=== PATIENT | female | born 2000 | race Hispanic/Latino ===

== ENCOUNTER 2019-02-20 20:04 | Inpatient (IN) | payer SELFPAY ==
[~2019-02-20] VITALS: Ht 162.6 cm; Wt 102.3 kg
[2019-02-20] MEDS ORDERED: SODIUM CHLORIDE 0.9% 1000ML 1,000 ML IV ONE (20:24)
[2019-02-20] MEDS ORDERED: SODIUM CHLORIDE 0.9% 1000ML 2,000 ML IV ONE (20:36)
[2019-02-20 20:46] LABS: ABG OXYGEN SATURATION 40.5 % (95.0-99.0); BASE EXCESS,VENOUS BLOOD GAS -19.1 (-2.0-3.0); HCO3,VENOUS BLOOD GAS 6.1 (21.0-28.0); PCO2,VENOUS BLOOD GAS 16 (32-45); PH,VENOUS BLOOD GAS 7.212 (7.350-7.450)
[2019-02-20 20:57] LABS: BASOPHILS % (AUTO) 0.8 % (0.0-5.0); EOSINOPHILS % (AUTO) 0.1 % (0.0-8.0); HEMATOCRIT 49.4 % (36-48); LYMPHOCYTES % (AUTO) 10.6 % (21.0-51.0); MEAN CORPUSCULAR HEMOGLOBIN 27.1 pg (27.0-33.0); MEAN CORPUSCULAR HGB CONC 34.6 g/dL (32.0-36.0); MEAN CORPUSCULAR VOLUME 78.4 fL (80-100); MONOCYTES % (AUTO) 9.2 % (3.0-13.0); NEUTROPHILS % (AUTO) 75.6 % (40.0-77.0); PLATELET COUNT (AUTO) 262 K/uL (130-400); RED CELL DISTRIBUTION WIDTH 13.2 % (11.0-15.5); WHITE BLOOD COUNT (AUTO) 15.8 K/uL (4.8-10.8)
[2019-02-20] MEDS ORDERED: INSULIN HUMULIN R 100 UNIT/ML 3ML ONE ×2 (21:05→21:09)
[2019-02-20 21:08] LABS: INR 0.97 (0.85-1.15); PROTHROMBIN TIME 10.2 SEC (9.6-11.6)
[2019-02-20] MEDS ORDERED: SODIUM CHLORIDE 0.9% 100 ML IV ONE (21:09)
[2019-02-20 21:13] LABS: APPEARANCE,URINE CLOUDY (CLEAR); BILIRUBIN,URINE MODERATE (NEGATIVE); COLOR,URINE YELLOW (YELLOW); GLUCOSE, URINE (UA) 500 mg/dL (NEGATIVE); KETONES,URINE >=80 mg/dL (NEGATIVE); LEUKOCYTE ESTERASE ,URINE NEGATIVE (NEGATIVE); NITRATE,URINE NEGATIVE (NEGATIVE); OCCULT BLOOD,URINE SMALL (NEGATIVE); PROTEIN,URINE 30 mg/dL (NEGATIVE); UROBILINOGEN,URINE 0.2 mg/dL (0.2-1.0)
[2019-02-20 21:22] LABS: HCG,QUAL RESULT NEGATIVE (NEGATIVE)
[2019-02-20 21:23] LABS: AMPHET/METH SCREEN,URINE NEGATIVE (NEGATIVE); BARBITURATE SCREEN, URINE NEGATIVE (NEGATIVE); BENZODIAZEPINES SCREEN,URINE NEGATIVE (NEGATIVE); CANNABINOID SCREEN,URINE NEGATIVE (NEGATIVE); COCAINE SCREEN,URINE NEGATIVE (NEGATIVE); OPIATE SCREEN,URINE NEGATIVE (NEGATIVE); PHENCYCLIDINE SCREEN,URINE NEGATIVE (NEGATIVE)
[2019-02-20 21:36] LABS: ALBUMIN 4.1 g/dL (3.5-5.0); BILIRUBIN,TOTAL 0.6 mg/dL (0.2-1.0); TOTAL PROTEIN, SERUM 8.2 g/dL (6.0-8.3)
[2019-02-20 21:43] LABS: POTASSIUM 2.6 mmol/L (3.5-5.1)
[2019-02-20] MEDS ORDERED: POTASSIUM CHLORIDE 10% ELIXIR 20 MEQ/15 ML UDCUP ONE (21:47)
[2019-02-20] MEDS ORDERED: POTASSIUM BICARB/CIT AC 25 MEQ TABLET.EFF ONE (21:53)
[2019-02-20 22:00] LABS: BACTERIA,URINE Few /HPF (None Seen); YEAST,URINE BUDDING Few /HPF (None Seen)
[2019-02-20 22:01] LABS: HYALINE CASTS, URINE 0-1 /LPF (0-1 /LPF); OTHER CASTS, URINE WBC CASTS 1+ /LPF (None Seen); SQUAMOUS EPITHELIAL CELL,UR Few /HPF (0-2)
[2019-02-20] MEDS: SODIUM CHLORIDE 0.9% 1000ML 1,000 ML IV SCH (22:02)
[2019-02-20] MEDS ORDERED: DEXTROSE 5 %-0.45 % NACL 1,000 ML IV PRN (22:02)
[2019-02-20] MEDS ORDERED: NITROGLYCERIN 0.4 MG SL TAB SL PRN (22:15)
[2019-02-20] MEDS ORDERED: POTASSIUM CHLORIDE 10MEQ/100ML 100 ML IV PRN (22:15)
[2019-02-20] MEDS ORDERED: ONDANSETRON HCL 4 MG/2 ML VIAL IV PRN (22:15)
[2019-02-20] MEDS ORDERED: DiphenhydrAMINE HCL 50 MG/ML VIAL IV PRN (22:15)
[2019-02-20] MEDS ORDERED: INSULIN REGULAR, HUMAN 3ML 100 UNIT in SODIUM CHLORIDE 0.9% 99 ML IV SCH ×2 (22:45)
[2019-02-20] MEDS ORDERED: GLUCAGON 1MG KIT 1 MG ML IM PRN (22:45)
[2019-02-20] MEDS ORDERED: DEXTROSE 50%-WATER 50 ML DISP.SYRIN IV PRN (22:45)
[2019-02-20 22:53] LABS: ABG BASE EXCESS -18.9 mmol/L (-2.0-3.0); ABG OXYGEN SATURATION 99.2 % (95.0-99.0); ABG PCO2 < 17 mmHg (32-45)
[2019-02-20] MEDS ORDERED: IOHEXOL 350 MG/ML 100ML INFUS..BTL IV ONE (23:14)
[2019-02-20] MEDS ORDERED: ENOXAPARIN SODIUM 100 MG/1 ML SQ SCH (23:15)
[2019-02-20] MEDS: SODIUM BICARB 8.4% 50ML SYRINGE IVP SCH (23:15)
[2019-02-20] MEDS ORDERED: POTASSIUM CHLORIDE 10MEQ/100ML 100 ML IV ONE (23:40)
[2019-02-20] MEDS ORDERED: SODIUM BICARB 50MEQ 50ML VIAL ONE (23:41)
[2019-02-20] MEDS ORDERED: FAMOTIDINE/PF 20 MG/2 ML VIAL IV ONE (23:42)
[2019-02-21] VITALS (41 sets, daily range): BP systolic 104–132; BP diastolic 29–83
[2019-02-21] MEDS ORDERED: LIDOCAINE HCL-MPF 1% 2ML VIAL ONE (00:12)
[2019-02-21] MEDS ORDERED: ENOXAPARIN SODIUM 100 MG/1 ML SQ ONE (00:48)
[2019-02-21] MEDS ORDERED: SODIUM BICARB 50MEQ 50ML VIAL ONE ×4 (00:51→04:32)
[2019-02-21] MEDS ORDERED: LACTATED RINGERS 1000ML 1,000 ML IV ONE ×3 (00:53→05:45)
[2019-02-21 01:18] LABS: CREATININE 0.6 mg/dL (0.5-1.5); MAGNESIUM 1.8 mg/dL (1.80-2.40); TROPONIN I 0.12 ng/mL (0.00-0.06)
[2019-02-21 01:32] LABS: PHOSPHORUS 0.5 mg/dL (2.5-4.9)
[2019-02-21 01:34] LABS: POTASSIUM 2.4 mmol/L (3.5-5.1)
[2019-02-21] MEDS ORDERED: DEXTROSE 5%-WATER 1,000 ML IV ONE (02:18)
[2019-02-21 02:35] LABS: ABG BASE EXCESS -6.3 mmol/L (-2.0-3.0); ABG HCO3 12.1 mmol/L (21.0-28.0); ABG OXYGEN SATURATION 99.3 % (95.0-99.0); ABG PCO2 < 17 mmHg (32-45)
[2019-02-21] MEDS ORDERED: ASPIRIN 325MG EC TAB 325 MG TABLET.DR PO SCH (02:45)
[2019-02-21] MEDS ORDERED: ASPIRIN 325 MG TABLET ONE (02:46)
[2019-02-21] MEDS: SODIUM CHLORIDE 0.9% 1000ML 1,000 ML IV SCH ×2 (03:02→08:02)
[2019-02-21] MEDS ORDERED: POTASSIUM CHLORIDE 10MEQ/100ML 100 ML IV ONE ×3 (03:11→06:57)
[2019-02-21 04:51] LABS: CREATININE 0.5 mg/dL (0.5-1.5); MAGNESIUM 1.6 mg/dL (1.80-2.40); PHOSPHORUS 0.3 mg/dL (2.5-4.9)
[2019-02-21 05:06] LABS: POTASSIUM 2.1 mmol/L (3.5-5.1)
[2019-02-21 05:55] LABS: TROPONIN I 0.18 ng/mL (0.00-0.06)
[2019-02-21 06:30] LABS: ABG BASE EXCESS -4.7 mmol/L (-2.0-3.0); ABG HCO3 15.1 mmol/L (21.0-28.0); ABG OXYGEN SATURATION 99.2 % (95.0-99.0); ABG PCO2 19 mmHg (32-45)
[2019-02-21] MEDS ORDERED: MAGNESIUM 2GM PREMIX 50ML 50 ML IV ONE (08:28)
[2019-02-21 09:35] LABS: CREATININE 0.6 mg/dL (0.5-1.5); MAGNESIUM 1.6 mg/dL (1.80-2.40)
[2019-02-21 10:05] LABS: POTASSIUM 1.8 mmol/L (3.5-5.1)
[2019-02-21 10:08] LABS: ABG BASE EXCESS -6.1 mmol/L (-2.0-3.0); ABG HCO3 14.4 mmol/L (21.0-28.0); ABG OXYGEN SATURATION 97.8 % (95.0-99.0); ABG PCO2 19 mmHg (32-45)
[2019-02-21] MEDS ORDERED: D5W-1/2 NS/20MEQ KCL 1,000 ML IV SCH (10:30)
[2019-02-21] MEDS ORDERED: POTASSIUM CHLORIDE 20 MEQ ERTAB PO ONE ×2 (10:44→12:53)
[2019-02-21] MEDS: LIDOCAINE HCL-MPF 1% 2ML VIAL IJ PRN ×2 (10:52→15:28)
[2019-02-21 11:15] LABS: PHOSPHORUS 0.4 mg/dL (2.5-4.9)
[2019-02-21] MEDS ORDERED: MAGNESIUM 2GM PREMIX 50ML 50 ML IV PRN (12:30)
[2019-02-21] MEDS: DEXTROSE 10%-WATER 1,000 ML IV SCH ×2 (12:30→20:56)
[2019-02-21] MEDS ORDERED: PHARMACY COMMUNICATION MISC SCH (12:30)
--- NOTE | 2019-02-21 12:40 | NUR ---
RT EXTERNAL JUGULAR IV CATH INSERTED BY DR YUNG FOR IV KCL AND MAG.
[2019-02-21] MEDS: POTASSIUM CHLORIDE 20 MEQ/100 ML BAG IV SCH ×5 (12:44→17:23)
[2019-02-21] MEDS: MAGNESIUM 2GM PREMIX 50ML 50 ML IV PRN (12:45)
[2019-02-21] MEDS: FAMOTIDINE/PF 20 MG/2 ML VIAL IV SCH ×2 (13:06→20:52)
[2019-02-21] MEDS: POTASSIUM CHLORIDE 40 MEQ in SODIUM CHLORIDE 0.9% 1000ML 1,000 ML IV SCH ×2 (13:06→20:20)
[2019-02-21] MEDS: POTASSIUM PHOS 15 mMOL+NS250ML 250 ML IV PRN (13:09)
[2019-02-21] MEDS: ZOSYN 3.375GM+NS 50ML 50 ML IV SCH ×2 (13:10→20:51)
[2019-02-21] MEDS ORDERED: COMPOUND IV REFRIGERATED 1 EACH IVSOLN MISC PRN (13:15)
[2019-02-21] MEDS ORDERED: VANCOMYCIN PROTOCOL PER PHARMACY IV SCH (13:15)
[2019-02-21] MEDS ORDERED: VANCOMYCIN 1.5 GM in SODIUM CHLORIDE 0.9% 250 ML IV SCH (13:30)
[2019-02-21] MEDS ORDERED: VANCOMYCIN 1GM+NS 250ML 250 ML IV SCH (13:30)
[2019-02-21 14:55] LABS: ABG BASE EXCESS -5.3 mmol/L (-2.0-3.0); ABG OXYGEN SATURATION 97.7 % (95.0-99.0); ABG PCO2 23 mmHg (32-45)
[2019-02-21 15:10] LABS: CREATININE 0.6 mg/dL (0.5-1.5); MAGNESIUM 2.6 mg/dL (1.80-2.40); PHOSPHORUS 0.5 mg/dL (2.5-4.9)
[2019-02-21 15:17] LABS: POTASSIUM 1.7 mmol/L (3.5-5.1)
--- NOTE | 2019-02-21 15:17 | NUR ---
PT HAVING DIFFICULTY WITH KCL INFUSION DUE TO PAIN. I AM HAVING TO REDUCE RATES TO KEEP HER COMFORTABLE. ALSO USING LIDOCAINE DIRECTED.
--- NOTE | 2019-02-21 15:30 | NUR ---
RT EXTERNAL JUGULAR CATHETER NOW BEGINNING TO SWELL AND CAUSE MORE PAIN. I HAVE REMOVED IT PROMPTLY. NO HEMATOMA
--- NOTE | 2019-02-21 15:55 | NUR ---
I WAS UNABLE TO START A PROPER PERIPHERAL IV ON MS ERLIN. SHE IS NOT TOLERATING PERIPHERAL IV KCL INFUSION - POTASSIUM LEVEL CRITICALLY LOW 1.[address] YUNG. HE WILL COME IN TO START A CENTRAL LINE NOW
[2019-02-21 18:18] LABS: ABG BASE EXCESS -8.9 mmol/L (-2.0-3.0); ABG OXYGEN SATURATION 98.3 % (95.0-99.0); ABG PCO2 18 mmHg (32-45)
[2019-02-21 19:14] LABS: CREATININE 0.6 mg/dL (0.5-1.5); MAGNESIUM 2.4 mg/dL (1.80-2.40); POTASSIUM 3.3 mmol/L (3.5-5.1)
--- NOTE | 2019-02-21 19:27 | NUR ---
cm note met with patient and spouse, pt states resides at home with mother, independent with ambulation no dme. no provider, pt drives. dc plan is back home. states no dc needs. Addendum: 02/21/19 at 1927 by MANDIE ANDERSON CM Amended: Links added.
--- NOTE | 2019-02-21 19:52 | NUR ---
HAND OFF REPORT GIVEN TO SPIKE LEMONS
[2019-02-21] MEDS ORDERED: ACETAMINOPHEN 325 MG TAB ONE (20:49)
[2019-02-21] MEDS: POTASSIUM CHLORIDE 20MEQ/100ML 100 ML IV PRN ×2 (20:54→23:14)
[2019-02-21 23:03] LABS: CREATININE 0.6 mg/dL (0.5-1.5); MAGNESIUM 2.2 mg/dL (1.80-2.40); PHOSPHORUS 0.7 mg/dL (2.5-4.9)
[2019-02-21 23:11] LABS: POTASSIUM 2.8 mmol/L (3.5-5.1)
[2019-02-21] MEDS: SODIUM BICARB 8.4% 50ML SYRINGE IVP SCH (23:15)
[2019-02-21] MEDS: VANCOMYCIN 1GM+NS 250ML 250 ML IV SCH (23:15)
[2019-02-22] VITALS (24 sets, daily range): BP systolic 106–137; BP diastolic 47–79
[2019-02-22] MEDS: POTASSIUM CHLORIDE 20MEQ/100ML 100 ML IV PRN ×11 (00:25→20:26)
[2019-02-22] MEDS ORDERED: LACTATED RINGERS 1000ML IV SCH (01:15)
[2019-02-22] MEDS ORDERED: LACTATED RINGERS 1000ML 1,000 ML IV ONE (01:37)
[2019-02-22 03:11] LABS: HEMATOCRIT 38.5 % (36-48); MEAN CORPUSCULAR HGB CONC 34.8 g/dL (32.0-36.0); MEAN CORPUSCULAR VOLUME 77.6 fL (80-100); PLATELET COUNT (AUTO) 147 K/uL (130-400); RED BLOOD CELL COUNT(AUTO) 4.96 MIL/uL (4.00-5.50); RED CELL DISTRIBUTION WIDTH 13.3 % (11.0-15.5); WHITE BLOOD COUNT (AUTO) 10.6 K/uL (4.8-10.8)
[2019-02-22 03:23] LABS: ALBUMIN 2.8 g/dL (3.5-5.0); BILIRUBIN,TOTAL 0.6 mg/dL (0.2-1.0); CREATININE 0.6 mg/dL (0.5-1.5); MAGNESIUM 1.6 mg/dL (1.80-2.40); PHOSPHORUS 0.6 mg/dL (2.5-4.9); TOTAL PROTEIN, SERUM 5.9 g/dL (6.0-8.3)
[2019-02-22 03:28] LABS: POTASSIUM 2.9 mmol/L (3.5-5.1)
[2019-02-22 03:36] LABS: BAND NEUTROPHILS % (MANUAL) 10 % (0-2); LYMPHOCYTES % (MANUAL) 11 % (22-44); MAN.DIFF COMMENT-IMPRESSION MANUAL DIFFERENTIAL; MONOCYTES % (MANUAL) 6 % (2-9); PLATELET MORPHOLOGY COMMENT ADEQUATE; SEGMENTED NEUTROPHILS % 73 % (40-70)
--- NOTE | 2019-02-22 04:40 | NUR ---
STATUS BENCHMARK PAGED. RETURN CALL FROM [facility]. PROVIDED ABG RESULTS. MOST RECENT LABS REVIEWED AND CURRENT IV FLUIDS. ORDERS RECEIVED AND ENTERED INTO SYSTEM.
[2019-02-22] MEDS ORDERED: SODIUM BICARB 8.4% 50ML SYRINGE IVP ONE (05:00)
[2019-02-22] MEDS: LACTATED RINGERS 1000ML 1,000 ML IV SCH ×2 (05:01→12:09)
[2019-02-22] MEDS: ZOSYN 3.375GM+NS 50ML 50 ML IV SCH ×3 (05:01→20:24)
[2019-02-22] MEDS ORDERED: SODIUM BICARB 50MEQ 50ML VIAL ONE (05:11)
[2019-02-22] MEDS: POTASSIUM CHLORIDE 40 MEQ in SODIUM CHLORIDE 0.9% 1000ML 1,000 ML IV SCH ×4 (05:16→20:24)
[2019-02-22] MEDS: VANCOMYCIN 1GM+NS 250ML 250 ML IV SCH ×4 (05:16→23:14)
[2019-02-22 06:59] LABS: CREATININE 0.6 mg/dL (0.5-1.5); MAGNESIUM 1.7 mg/dL (1.80-2.40); PHOSPHORUS 0.6 mg/dL (2.5-4.9)
[2019-02-22 07:02] LABS: POTASSIUM 2.4 mmol/L (3.5-5.1)
[2019-02-22] MEDS: POTASSIUM PHOS 15 mMOL+NS250ML 250 ML IV PRN ×4 (07:59→23:12)
[2019-02-22] MEDS: ENOXAPARIN SODIUM 40 MG/0.4 ML SYRINGE SQ SCH (09:05)
[2019-02-22] MEDS: FAMOTIDINE/PF 20 MG/2 ML VIAL IV SCH ×2 (09:06→20:25)
[2019-02-22 10:18] LABS: CREATININE 0.6 mg/dL (0.5-1.5); MAGNESIUM 1.7 mg/dL (1.80-2.40); PHOSPHORUS 1.1 mg/dL (2.5-4.9)
[2019-02-22] MEDS: INSULIN REGULAR, HUMAN 3ML 100 UNIT in SODIUM CHLORIDE 0.9% 99 ML IV SCH ×2 (10:57)
[2019-02-22 11:06] LABS: ABG BASE EXCESS -11.7 mmol/L (-2.0-3.0); ABG HCO3 10.8 mmol/L (21.0-28.0); ABG OXYGEN SATURATION 97.8 % (95.0-99.0)
[2019-02-22 11:14] LABS: ABG PCO2 19 mmHg (32-45)
[2019-02-22] MEDS: MAGNESIUM 2GM PREMIX 50ML 50 ML IV PRN ×2 (12:49→15:08)
[2019-02-22 14:09] LABS: CREATININE 0.5 mg/dL (0.5-1.5); MAGNESIUM 1.8 mg/dL (1.80-2.40); PHOSPHORUS 0.8 mg/dL (2.5-4.9); POTASSIUM 3.1 mmol/L (3.5-5.1)
--- NOTE | 2019-02-22 14:17 | NUR ---
RD NOTIFICATION DX: DKA. DIET: NPO. BMI IS 36.1 CLASSIFIED OBESE. LABS REVIEWED. MEDS REVIEWED. SKIN INTACT, NO EDEMA NOTED. PT STATED SHE DID NOT KNOW SHE WAS DIABETIC AND CONSUMES REGULAR DIET AT HOME. RD PROVIDED DM DIET AND NUTRITION EDUCATION. PT AND FAMILY ASKED QUESTIONS, RD ANSWERED, PT VERBALIZED UNDERSTANDING. EDUCATION MATERIALS WERE PROVIDED. RD RECOMMENDS TO ADVANCE DIET TOLERATED WHEN MEDIALLY FEASIBLE RD PROVIDED DM MEDICAL NUTRITION THERAPY RD WILL CONTINUE TO MONITOR AND FOLLOW UP, THANK YOU. Addendum: 02/22/19 at [address] Amended: Links added.
--- NOTE | 2019-02-22 14:20 | NUR ---
NUTRITION EDUCATION COMPLETED PT STATED SHE DID NOT KNOW SHE WAS DIABETIC AND CONSUMES REGULAR DIET AT HOME. RD PROVIDED DM DIET AND NUTRITION EDUCATION. PT AND FAMILY ASKED QUESTIONS, RD ANSWERED, PT VERBALIZED UNDERSTANDING. EDUCATION MATERIALS WERE PROVIDED. Addendum: 02/22/19 at [address] Amended: Links added.
[2019-02-22 18:51] LABS: CREATININE 0.4 mg/dL (0.5-1.5); MAGNESIUM 2.6 mg/dL (1.80-2.40); PHOSPHORUS 2.1 mg/dL (2.5-4.9); POTASSIUM 3.7 mmol/L (3.5-5.1)
--- NOTE | 2019-02-22 19:30 | NUR ---
ASSESSMENT PT AAOX3, PLEASANT, COOPERATIVE, FOLLOWS ALL COMMANDS. MOTHER AT BEDSIDE. CURRENTLY DENIES ANY PAIN OR DISTRESS. DENIES ANY PAIN/CHEST PAIN/ OR S.O.B., SINUS TACHY, ON ROOM AIR. GENERALIZED PAPULAR RASH NOTED. 16 FR GONZALEZ IN SITU DRAINING CLEAR PALE URINE. IV FLUIDS INFUSING WITHOUT DIFFICULTY. MOTHER AT BEDSIDE. ASSESSMENT COMPLETED, SEE FLOW SHEET.
[2019-02-22] MEDS: NEUTRA-PHOS PACKET 1 EACH PO SCH (20:25)
[2019-02-22 22:16] LABS: CREATININE 0.4 mg/dL (0.5-1.5); MAGNESIUM 2.2 mg/dL (1.80-2.40); PHOSPHORUS 1.3 mg/dL (2.5-4.9); POTASSIUM 3.6 mmol/L (3.5-5.1)
--- NOTE | 2019-02-22 23:00 | NUR ---
ASSESSMENT PT AAOX3, PLEASANT, COOPERATIVE, FOLLOWS ALL COMMANDS. MOTHER AT BEDSIDE. CURRENTLY DENIES ANY PAIN OR DISTRESS. DENIES ANY PAIN/CHEST PAIN/ OR S.O.B., SINUS TACHY, ON ROOM AIR. GENERALIZED PAPULAR RASH NOTED. 16 FR GONZALEZ IN SITU DRAINING CLEAR PALE YELLOW URINE. IV FLUIDS INFUSING WITHOUT DIFFICULTY. ASSESSMENT COMPLETED, SEE FLOW SHEET.
[2019-02-22] MEDS: ACETAMINOPHEN 325 MG TAB PO PRN (23:57)
[2019-02-23] VITALS (24 sets, daily range): BP systolic 116–137; BP diastolic 56–80
[2019-02-23 02:24] LABS: CREATININE 0.5 mg/dL (0.5-1.5); MAGNESIUM 1.8 mg/dL (1.80-2.40); PHOSPHORUS 1.9 mg/dL (2.5-4.9)
--- NOTE | 2019-02-23 03:00 | NUR ---
ASSESSMENT PT AROUSES EASILY, RESPONDS APPROPRIATELY, PLEASANT, COOPERATIVE, FOLLOWS ALL COMMANDS. MOTHER AT BEDSIDE. CURRENTLY DENIES ANY PAIN OR DISTRESS. DENIES ANY PAIN/CHEST PAIN/ OR S.O.B., SINUS TACHY, ON ROOM AIR. GENERALIZED PAPULAR RASH NOTED. 16 FR GONZALEZ IN SITU DRAINING CLEAR PALE YELLOW URINE. IV FLUIDS INFUSING WITHOUT DIFFICULTY. ASSESSMENT COMPLETED, SEE FLOW SHEET.
[2019-02-23] MEDS: POTASSIUM CHLORIDE 40 MEQ in SODIUM CHLORIDE 0.9% 1000ML 1,000 ML IV SCH ×3 (03:06→17:40)
[2019-02-23] MEDS: POTASSIUM CHLORIDE 20MEQ/100ML 100 ML IV PRN ×7 (03:08→22:58)
[2019-02-23] MEDS: ZOSYN 3.375GM+NS 50ML 50 ML IV SCH ×3 (03:08→20:01)
[2019-02-23] MEDS: MAGNESIUM 2GM PREMIX 50ML 50 ML IV PRN ×2 (03:08→14:23)
[2019-02-23] MEDS: DEXTROSE 10%-WATER 1,000 ML IV SCH ×2 (03:25→20:01)
[2019-02-23 04:15] LABS: ABG BASE EXCESS -8.3 mmol/L (-2.0-3.0); ABG HCO3 12.8 mmol/L (21.0-28.0); ABG OXYGEN SATURATION 98.6 % (95.0-99.0); ABG PCO2 19 mmHg (32-45)
[2019-02-23] MEDS: VANCOMYCIN 1GM+NS 250ML 250 ML IV SCH ×3 (04:29→17:39)
[2019-02-23 06:58] LABS: HEMATOCRIT 37.1 % (36-48); MEAN CORPUSCULAR HEMOGLOBIN 27.2 pg (27.0-33.0); MEAN CORPUSCULAR HGB CONC 34.8 g/dL (32.0-36.0); MEAN CORPUSCULAR VOLUME 78.3 fL (80-100); NUCLEATED RED BLOOD CELLS 0.3 % (0.0-0.19); PLATELET COUNT (AUTO) 132 K/uL (130-400); RED BLOOD CELL COUNT(AUTO) 4.74 MIL/uL (4.00-5.50); WHITE BLOOD COUNT (AUTO) 8.9 K/uL (4.8-10.8)
[2019-02-23] MEDS: ACETAMINOPHEN 325 MG TAB PO PRN (07:54)
[2019-02-23 08:01] LABS: ALBUMIN 2.5 g/dL (3.5-5.0); BILIRUBIN,TOTAL 0.4 mg/dL (0.2-1.0); CREATININE 0.5 mg/dL (0.5-1.5); MAGNESIUM 2.9 mg/dL (1.80-2.40); PHOSPHORUS 1.5 mg/dL (2.5-4.9); POTASSIUM 3.5 mmol/L (3.5-5.1); TOTAL PROTEIN, SERUM 5.6 g/dL (6.0-8.3)
[2019-02-23] MEDS: POTASSIUM PHOS 15 mMOL+NS250ML 250 ML IV PRN (08:02)
[2019-02-23] MEDS: LACTATED RINGERS 1000ML 1,000 ML IV SCH ×3 (08:09→22:59)
[2019-02-23] MEDS: ENOXAPARIN SODIUM 40 MG/0.4 ML SYRINGE SQ SCH (09:03)
[2019-02-23] MEDS: FAMOTIDINE/PF 20 MG/2 ML VIAL IV SCH ×2 (09:03→20:55)
[2019-02-23] MEDS: NEUTRA-PHOS PACKET 1 EACH PO SCH ×4 (09:09→20:55)
--- NOTE | 2019-02-23 09:45 | NUR ---
DR PELAYO IN TO SEE PT. EXTENSIVELY EXPLAINED PLAN OF CARE AND DISEASE PROCESS TO PT AND MOTHER
[2019-02-23] MEDS ORDERED: METOPROLOL TARTRATE 1 MG/ML 5ML VIAL IV SCH (13:00)
[2019-02-23] MEDS ORDERED: LACTATED RINGERS 1000ML IV SCH (13:15)
[2019-02-23 13:20] LABS: MAGNESIUM 1.8 mg/dL (1.80-2.40); PHOSPHORUS 2.1 mg/dL (2.5-4.9); POTASSIUM 3.1 mmol/L (3.5-5.1)
[2019-02-23 19:54] LABS: MAGNESIUM 2.1 mg/dL (1.80-2.40); PHOSPHORUS 1.5 mg/dL (2.5-4.9); POTASSIUM 3.6 mmol/L (3.5-5.1)
[2019-02-23] MEDS: SODIUM CHLORIDE 0.9% IV SCH (22:59)
[2019-02-23] MEDS: VANCOMYCIN IV SCH (22:59)
[2019-02-23] MEDS: METOPROLOL TARTRATE 1 MG/ML 5ML VIAL IV PRN (23:00)
[2019-02-23] MEDS: INSULIN REGULAR, HUMAN 3ML 100 UNIT in SODIUM CHLORIDE 0.9% 99 ML IV SCH ×2 (23:15)
[2019-02-24] VITALS (22 sets, daily range): BP systolic 94–137; BP diastolic 34–88
[2019-02-24] MEDS: POTASSIUM CHLORIDE 40 MEQ in SODIUM CHLORIDE 0.9% 1000ML 1,000 ML IV SCH ×4 (01:42→22:38)
[2019-02-24 04:02] LABS: MEAN CORPUSCULAR HEMOGLOBIN 27.7 pg (27.0-33.0); MEAN CORPUSCULAR HGB CONC 35.4 g/dL (32.0-36.0); MEAN CORPUSCULAR VOLUME 78.2 fL (80-100); PLATELET COUNT (AUTO) 143 K/uL (130-400); RED BLOOD CELL COUNT(AUTO) 4.73 MIL/uL (4.00-5.50); RED CELL DISTRIBUTION WIDTH 14.4 % (11.0-15.5); WHITE BLOOD COUNT (AUTO) 7.8 K/uL (4.8-10.8)
[2019-02-24 04:28] LABS: ALANINE AMINOTRANSFERASE 48 U/L (12-78); ALBUMIN 2.5 g/dL (3.5-5.0); ASPARTATE AMINOTRANSFERASE 25 U/L (10-37); BILIRUBIN,TOTAL 0.5 mg/dL (0.2-1.0); CARBON DIOXIDE 26 mmol/L (21-32); CHLORIDE 106 mmol/L (101-111); CREATININE 0.5 mg/dL (0.5-1.5); GLOMERULAR FILTR. RATE CALC 167 mL/min (>60); GLUCOSE,RANDOM 179 mg/dL (70-105); PHOSPHORUS 1.6 mg/dL (2.5-4.9); SODIUM SERUM 146 mmol/L (136-145); TOTAL PROTEIN, SERUM 5.5 g/dL (6.0-8.3)
[2019-02-24 04:32] LABS: UREA NITROGEN, BLOOD 0 mg/dL (7-18)
[2019-02-24] MEDS: METOPROLOL TARTRATE 1 MG/ML 5ML VIAL IV PRN (04:32)
[2019-02-24] MEDS: POTASSIUM CHLORIDE 20MEQ/100ML 100 ML IV PRN ×3 (04:35→14:10)
[2019-02-24] MEDS: ZOSYN 3.375GM+NS 50ML 50 ML IV SCH (04:35)
[2019-02-24] MEDS: SODIUM CHLORIDE 0.9% IV SCH ×2 (04:44→10:34)
[2019-02-24] MEDS: POTASSIUM PHOS 15 mMOL+NS250ML 250 ML IV PRN (04:44)
[2019-02-24] MEDS: MAGNESIUM 2GM PREMIX 50ML 50 ML IV PRN (04:44)
[2019-02-24] MEDS: VANCOMYCIN IV SCH ×2 (04:44→10:34)
[2019-02-24] MEDS ORDERED: PHARMACY COMMUNICATION MISC SCH (05:45)
[2019-02-24] MEDS: LACTATED RINGERS 1000ML 1,000 ML IV SCH (06:08)
[2019-02-24] MEDS: FAMOTIDINE/PF 20 MG/2 ML VIAL IV SCH (09:11)
[2019-02-24] MEDS: NEUTRA-PHOS PACKET 1 EACH PO SCH ×4 (09:14→21:46)
[2019-02-24] MEDS: ENOXAPARIN SODIUM 40 MG/0.4 ML SYRINGE SQ SCH (09:15)
[2019-02-24 11:21] LABS: CREATININE 0.4 mg/dL (0.5-1.5); MAGNESIUM 2.1 mg/dL (1.80-2.40); POTASSIUM 3.5 mmol/L (3.5-5.1)
[2019-02-24] MEDS: METOPROLOL TARTRATE 1 MG/ML 5ML VIAL IV SCH ×4 (11:22→23:14)
[2019-02-24] MEDS: INSULIN LISPRO 100 UNIT/ML 3ML SQ SCH ×5 (11:35→21:00)
[2019-02-24] MEDS: AMOXICILLIN/POTASSIUM CLAV 875-125 TABLET PO SCH ×2 (13:24→23:13)
[2019-02-24] MEDS: INSULIN HUMULIN 70/30 100 UNIT/ML 3ML SQ SCH (16:22)
[2019-02-24] MEDS: INSULIN GLARGINE 100 UNITS/ML 10 ML VIAL SQ SCH (22:05)
[2019-02-25 03:41] VITALS: BP 101/51
[2019-02-25 04:24] LABS: BASOPHILS % (AUTO) 0.2 % (0.0-5.0); EOSINOPHILS % (AUTO) 0.4 % (0.0-8.0); HEMATOCRIT 33.3 % (36-48); LYMPHOCYTES % (AUTO) 21.5 % (21.0-51.0); MEAN CORPUSCULAR HGB CONC 32.7 g/dL (32.0-36.0); MEAN CORPUSCULAR VOLUME 82.6 fL (80-100); MONOCYTES % (AUTO) 12.6 % (3.0-13.0); NEUTROPHILS % (AUTO) 62.6 % (40.0-77.0); NUCLEATED RED BLOOD CELLS 0.6 % (0.0-0.19); PLATELET COUNT (AUTO) 116 K/uL (130-400); RED BLOOD CELL COUNT(AUTO) 4.03 MIL/uL (4.00-5.50); WHITE BLOOD COUNT (AUTO) 8.3 K/uL (4.8-10.8)
[2019-02-25 04:53] LABS: CREATININE 0.9 mg/dL (0.5-1.5); MAGNESIUM 1.5 mg/dL (1.80-2.40); PHOSPHORUS 2.2 mg/dL (2.5-4.9); POTASSIUM 4.3 mmol/L (3.5-5.1)
[2019-02-25] MEDS: POTASSIUM CHLORIDE 40 MEQ in SODIUM CHLORIDE 0.9% 1000ML 1,000 ML IV SCH ×3 (04:54→16:11)
[2019-02-25] MEDS: MAGNESIUM 2GM PREMIX 50ML 50 ML IV PRN (05:49)
[2019-02-25] MEDS: METOPROLOL TARTRATE 1 MG/ML 5ML VIAL IV SCH ×2 (06:22→11:47)
[2019-02-25] MEDS: INSULIN LISPRO 100 UNIT/ML 3ML SQ SCH ×7 (07:01→20:45)
[2019-02-25] MEDS: INSULIN HUMULIN 70/30 100 UNIT/ML 3ML SQ SCH ×2 (07:07→16:10)
[2019-02-25] MEDS: ENOXAPARIN SODIUM 40 MG/0.4 ML SYRINGE SQ SCH (07:37)
[2019-02-25] MEDS: NEUTRA-PHOS PACKET 1 EACH PO SCH (07:38)
--- NOTE | 2019-02-25 08:00 | NUR ---
ASSESSMENT PT IS AAOX3 DENIES CP DENIES SOB DENIES NV NO COMPLAINTS RESTING IN BED. . NO VISIBLE SIGNS OF DISTRESS NOTED. BREATHING PATTERN IS EVEN AND UNLABORED AT THIS TIME. AMD MEDS GIVEN AND TOLERATED. MOTHER IS AT BEDSIDE. CALL LIGHT WITHIN REACH.
[2019-02-25 08:03] VITALS: BP 109/72
--- NOTE | 2019-02-25 08:33 | NUR ---
RD FOLLOW UP RD CONSULTED FOR DIABETIC EDUCATION 02/24/19. PT AND HER FAMILY WERE EDUCATED BY KARLEE REGARDING DIABETIC DIET ON 02/22/19. EDUCATION HANDOUTS PROVIDED, PT VERBALIZED UNDERSTANDING. ALL QUESTIONS ANSWERED. PLEASE NOTIFY KARLEE AT EXTENSION 0042 IF ANY ADDITIONAL QUESTIONS OR CONCERNS ARISE, THANK YOU. Addendum: 02/25/19 at [address] Amended: Links added.
[2019-02-25] MEDS: AMOXICILLIN/POTASSIUM CLAV 875-125 TABLET PO SCH (11:47)
[2019-02-25 12:12] VITALS: BP 122/66
[2019-02-25] MEDS ORDERED: METOPROLOL TARTRATE 1 MG/ML 5ML VIAL IV PRN (12:15)
[2019-02-25] MEDS: METOPROLOL TARTRATE 25 MG TAB PO SCH ×2 (13:28→20:42)
--- NOTE | 2019-02-25 13:30 | NUR ---
MD ROUNDS DR PELAYO AND DR HERNANDEZ ROUNDED, SAW PATIENT. ORDERS RECEIVED.
[2019-02-25 16:12] VITALS: BP 114/64
[2019-02-25 19:00] VITALS: BP 123/66
[2019-02-25] MEDS: INSULIN GLARGINE 100 UNITS/ML 10 ML VIAL SQ SCH (20:42)
[2019-02-25 23:00] VITALS: BP 113/60
[2019-02-26] MEDS: AMOXICILLIN/POTASSIUM CLAV 875-125 TABLET PO SCH ×2 (00:42→12:24)
[2019-02-26] MEDS: POTASSIUM CHLORIDE 40 MEQ in SODIUM CHLORIDE 0.9% 1000ML 1,000 ML IV SCH ×4 (00:42→21:33)
[2019-02-26 03:00] VITALS: BP 105/72
[2019-02-26] MEDS: INSULIN LISPRO 100 UNIT/ML 3ML SQ SCH ×7 (06:03→20:54)
[2019-02-26] MEDS: INSULIN HUMULIN 70/30 100 UNIT/ML 3ML SQ SCH ×2 (06:59→16:50)
[2019-02-26 07:51] VITALS: BP 103/61
[2019-02-26] MEDS: METOPROLOL TARTRATE 25 MG TAB PO SCH ×3 (08:44→20:53)
[2019-02-26] MEDS: ENOXAPARIN SODIUM 40 MG/0.4 ML SYRINGE SQ SCH (08:44)
[2019-02-26 11:56] VITALS: BP 100/49
[2019-02-26 13:19] LABS: MAGNESIUM 1.7 mg/dL (1.80-2.40); PHOSPHORUS 1.4 mg/dL (2.5-4.9)
[2019-02-26] MEDS: MAGNESIUM 2GM PREMIX 50ML 50 ML IV PRN (13:41)
[2019-02-26] MEDS: POTASSIUM PHOS 15 mMOL+NS250ML 250 ML IV PRN (15:35)
[2019-02-26 15:38] VITALS: BP 114/65
[2019-02-26] MEDS ORDERED: MAGNESIUM OXIDE 400 MG TABLET PO SCH (19:00)
[2019-02-26 20:07] VITALS: BP 111/54
[2019-02-26] MEDS ORDERED: MAGNESIUM OXIDE 400 MG TABLET PO ONE (20:45)
[2019-02-26] MEDS: NEUTRA-PHOS PACKET 1 EACH PO SCH (20:52)
[2019-02-26] MEDS: INSULIN GLARGINE 100 UNITS/ML 10 ML VIAL SQ SCH (20:55)
[2019-02-26 23:57] VITALS: BP 113/74
[2019-02-27] MEDS: AMOXICILLIN/POTASSIUM CLAV 875-125 TABLET PO SCH ×2 (00:15→12:28)
[2019-02-27 04:03] VITALS: BP 106/70
[2019-02-27 04:08] LABS: HEMATOCRIT 35.8 % (36-48); MEAN CORPUSCULAR HEMOGLOBIN 27.2 pg (27.0-33.0); MEAN CORPUSCULAR HGB CONC 31.6 g/dL (32.0-36.0); MEAN CORPUSCULAR VOLUME 86.1 fL (80-100); NUCLEATED RED BLOOD CELLS 0.4 % (0.0-0.19); PLATELET COUNT (AUTO) 106 K/uL (130-400); RED BLOOD CELL COUNT(AUTO) 4.16 MIL/uL (4.00-5.50); RED CELL DISTRIBUTION WIDTH 15.7 % (11.0-15.5); WHITE BLOOD COUNT (AUTO) 7.1 K/uL (4.8-10.8)
[2019-02-27] MEDS: POTASSIUM CHLORIDE 40 MEQ in SODIUM CHLORIDE 0.9% 1000ML 1,000 ML IV SCH (04:26)
[2019-02-27 04:44] LABS: ALBUMIN 1.8 g/dL (3.5-5.0); BILIRUBIN,TOTAL 0.3 mg/dL (0.2-1.0); MAGNESIUM 2.2 mg/dL (1.80-2.40); PHOSPHORUS 2.4 mg/dL (2.5-4.9); POTASSIUM 4.8 mmol/L (3.5-5.1); TOTAL PROTEIN, SERUM 4.8 g/dL (6.0-8.3)
[2019-02-27 04:46] LABS: % IRON SATURATION 54.3 % (22-44)
[2019-02-27] MEDS: INSULIN LISPRO 100 UNIT/ML 3ML SQ SCH ×7 (06:07→21:38)
[2019-02-27 07:26] VITALS: BP 108/48
[2019-02-27] MEDS: INSULIN HUMULIN 70/30 100 UNIT/ML 3ML SQ SCH ×2 (07:30→17:19)
[2019-02-27] MEDS: MAGNESIUM OXIDE 400 MG TABLET PO SCH (09:10)
[2019-02-27] MEDS: NEUTRA-PHOS PACKET 1 EACH PO SCH ×4 (09:11→21:11)
[2019-02-27] MEDS: METOPROLOL TARTRATE 25 MG TAB PO SCH ×2 (09:11→14:16)
[2019-02-27] MEDS: ENOXAPARIN SODIUM 40 MG/0.4 ML SYRINGE SQ SCH (09:12)
[2019-02-27 11:00] VITALS: BP 121/69
[2019-02-27 15:00] VITALS: BP 106/62
[2019-02-27 19:49] VITALS: BP 112/64
[2019-02-27] MEDS: METOPROLOL TARTRATE 50 MG TAB PO SCH (21:11)
[2019-02-27] MEDS: INSULIN GLARGINE 100 UNITS/ML 10 ML VIAL SQ SCH (21:37)
[2019-02-28] VITALS (7 sets, daily range): BP systolic 107–119; BP diastolic 51–71
[2019-02-28] MEDS: AMOXICILLIN/POTASSIUM CLAV 875-125 TABLET PO SCH ×3 (00:01→23:30)
[2019-02-28] MEDS: INSULIN LISPRO 100 UNIT/ML 3ML SQ SCH ×7 (06:25→21:00)
[2019-02-28] MEDS: INSULIN HUMULIN 70/30 100 UNIT/ML 3ML SQ SCH ×2 (06:26→17:12)
[2019-02-28] MEDS: METOPROLOL TARTRATE 50 MG TAB PO SCH ×3 (09:54→20:37)
[2019-02-28] MEDS: ENOXAPARIN SODIUM 40 MG/0.4 ML SYRINGE SQ SCH (09:54)
[2019-02-28] MEDS: MAGNESIUM OXIDE 400 MG TABLET PO SCH (09:55)
[2019-02-28] MEDS: NEUTRA-PHOS PACKET 1 EACH PO SCH ×3 (09:55→17:11)
--- NOTE | 2019-02-28 14:43 | NUR ---
DR. BARAHONA SPOKE WITH DR. FRAZIER ABOUT NEW CONSULT.
[2019-02-28] MEDS: SODIUM CHLORIDE 0.9% 1000ML 1,000 ML IV SCH (14:45)
--- NOTE | 2019-02-28 21:30 | NUR ---
PT NOTED TO HAVE LUMP ON RIGHT INNER THIGH. REDNESS/SWELLING NOTED. STATES IT WAS NOT THERE PRIOR. BROWN DISCOLORATION NOTED TO SURROUNDING AREA. STATES PAIN. CLEANSED AREA, AND APPLIED GAUZE.
[2019-02-28] MEDS: INSULIN GLARGINE 100 UNITS/ML 10 ML VIAL SQ SCH (21:34)
[2019-03-01] MEDS: SODIUM CHLORIDE 0.9% 1000ML 1,000 ML IV SCH ×2 (00:45→04:55)
[2019-03-01 04:24] VITALS: BP 121/68
[2019-03-01 05:02] LABS: CREATININE 1.9 mg/dL (0.5-1.5); POTASSIUM 3.4 mmol/L (3.5-5.1)
[2019-03-01] MEDS: INSULIN LISPRO 100 UNIT/ML 3ML SQ SCH ×3 (06:14→11:30)
[2019-03-01] MEDS: INSULIN HUMULIN 70/30 100 UNIT/ML 3ML SQ SCH (06:15)
[2019-03-01] MEDS: ENOXAPARIN SODIUM 40 MG/0.4 ML SYRINGE SQ SCH (07:22)
[2019-03-01] MEDS: METOPROLOL TARTRATE 50 MG TAB PO SCH ×2 (07:22→13:20)
[2019-03-01] MEDS: MAGNESIUM OXIDE 400 MG TABLET PO SCH (07:22)
--- NOTE | 2019-03-01 07:40 | NUR ---
ASSESSMENT PT IS AAOX3 DENIES CP DENIES SOB DENIES NV AT THIS TIME, RESTING IN CHAIR. NO COMPLAINTS. CALL LIGHT WITHIN REACH. MOTHER AT BEDSIDE.
[2019-03-01 08:13] VITALS: BP 108/70
[2019-03-01 11:50] VITALS: BP 103/66
[2019-03-01] MEDS ORDERED: METO50 PO (12:21)
[2019-03-01] MEDS ORDERED: HUM10VIA SQ ×2 (12:21)
[2019-03-01] MEDS ORDERED: AMOX1TAB16 PO (12:21)
[2019-03-01] MEDS ORDERED: MAGOX PO (12:21)
--- NOTE | 2019-03-01 12:40 | NUR ---
DR PELAYO ROUNDED PLAN FOR DC HOME TODAY AFTER [employer]NCIL[employer] ROUNDS WITH PATIENT.
[2019-03-01] MEDS: AMOXICILLIN/POTASSIUM CLAV 875-125 TABLET PO SCH (13:20)
[2019-03-01] MEDS ORDERED: [UNRECOGNIZED DRUG - CODE] MC (13:27)
[2019-03-01 14:04] LABS: MAGNESIUM 1.6 mg/dL (1.80-2.40); PHOSPHORUS 4.3 mg/dL (2.5-4.9); THYROID STIMULATING HORMONE 3.57 uIU/mL (0.36-3.74)
--- NOTE | 2019-03-01 15:00 | NUR ---
DISCHARGE PATIENT AND FAMILY VERBALIZE DC INSTRUCTIONS UNDERSTANDING, AND AGREE TO GET MEDS AND TAKE MEDS ORDERED, AGREE TO FOLLOW UP AND MAKE APPOINTMENT WITH PRIMARY MD WHEN NEW PRIMARY MD FOUND WITH SELF PAY CLINICS LIST GIVEN TO PATIENT AND FAMILY. ALL QUESTIONS ANSWERED, PIV REMOVED CATH TIP INTACT, TELE PACK REMOVED. ALL BELONGINGS GATHERED AND TAKEN BY FAMILY. DOWN VIA WC WITH NURSE AIDE AND FAMILY.
[2019-03-01] MEDS ORDERED: INSULIN HUMULIN 70/30 100 UNIT/ML 3ML SQ SCH (16:30)
[2019-03-02] MEDS ORDERED: INSULIN HUMULIN 70/30 100 UNIT/ML 3ML SQ SCH (07:30)
== END 2019-03-01 15:45 | disposition home or self-care (01) | DRG 638 ==
LOC: EDH 20:04 → EDHIP 20:05 → 2BH 02-21 09:23 → 2DH 02-24 18:23
PROVIDERS: ADMIT Hospitalist; ATTEND Hospitalist
PROC: 02HV33Z Insertion of Infusion Device into Superior Vena Cava, Percutaneous Approach (ICD-10-PCS; principal; 2019-02-21)
PROC: B548ZZA Ultrasonography of Superior Vena Cava, Guidance (ICD-10-PCS; 2019-02-21)
DX: E11.10 Type 2 diabetes mellitus with ketoacidosis without coma (principal); R65.10 Systemic inflammatory response syndrome (SIRS) of non-infectious origin without acute organ dysfunction; E87.0 Hyperosmolality and hypernatremia; E87.6 Hypokalemia; E86.1 Hypovolemia; E66.9 Obesity, unspecified; E83.39 Other disorders of phosphorus metabolism; E86.0 Dehydration; K57.90 Diverticulosis of intestine, part unspecified, without perforation or abscess without bleeding; B95.4 Other streptococcus as the cause of diseases classified elsewhere; Z79.4 Long term (current) use of insulin; Z83.3 Family history of diabetes mellitus; Z68.38 Body mass index [BMI] 38.0-38.9, adult
CPT/HCPCS: 36415; 36600; 71045; 71046; 71275; 80048; 80053; 80061; 80202; 80305; 81001; 81025; 82010; 82550; 82803; 82948; 83036; 83540; 83550; 83605; 83735; 83874; 84100; 84132; 84145; 84443; 84484; 85025; 85027; 85378; 85610; 85730; 87040; 87070; 87076; 87088; 87804; 93005; 93970; 99291; A6250; C1751; G0378; J1200; J1650; J1815; J2543; J3370; J3475; J3480; J3490; J7030; J7070; J7120; Q9967

== ENCOUNTER 2022-11-15 08:40 | Emergency (ER) | payer OTHER, SELFPAY ==
[~2022-11-15] VITALS: Ht 167.6 cm; Wt 96.6 kg
[~2022-11-15 08:40] MED LIST: AMOX1TAB16 PO; HUM10VIA SQ; MAGN400T7 PO; METO50 PO; [UNRECOGNIZED DRUG - CODE] MC
[2022-11-15 09:49] VITALS: BP 115/74; PULSE 85; RESP 16; O2SAT 97
[2022-11-15] MEDS ORDERED: ACET-66 PO (11:16)
== END 2022-11-15 11:53 | disposition home or self-care (01) ==
LOC: EDH 08:40
DX: S46.912A Strain of unspecified muscle, fascia and tendon at shoulder and upper arm level, left arm, initial encounter (principal); Z79.899 Other long term (current) drug therapy; V89.2XXA Person injured in unspecified motor-vehicle accident, traffic, initial encounter; Y93.89 Activity, other specified; Y92.89 Other specified places as the place of occurrence of the external cause; Y99.8 Other external cause status
CPT/HCPCS: 70450; 72125; 73030; 81025